=== PATIENT | female | born 1985 | race Caucasian/White ===

== ENCOUNTER 2018-02-14 12:31 | Observation (INO) ==
[2018-02-14 14:24] LABS: Amphetamine Screen,Urine Negative ng/mL (Cutoff=1000); Barbiturate Screen,Urine Negative ng/mL (Cutoff=200); Benzodiazepines Screen,Urine Negative ng/mL (Cutoff=200); Candida DNA Not Detected (Not Detect); Cannabinoid Screen,Urine Negative ng/mL (Cutoff = 50); Cocaine Screen,Urine Negative ng/mL (Cutoff= 300); Gardnerella DNA Not Detected (Not Detect); Opiate Screen,Urine Negative ng/mL (Cutoff=300); Phencyclidine Screen,Urine Negative ng/mL (Cutoff=25); Trichomonas DNA Not Detected (Not Detect)
--- NOTE | 2018-02-14 16:02 | OB/GYN Progress Note ---
Date of Encounter: 02/15/18 Time of Encounter: 15:31 - Assessment and Plan (1) 31 weeks gestation of Status: Acute Follow-up as 30 scheduled labor parameters discussed Discharge home (2) Vaginal discharge during in third trimester Status: Acute fibronectin positive-this test was collected and run prior to knowledge of last intercourse. Given last intercourse was this morning, it is likely that this is a false positive. Vaginosis panel-negative Urine screen negative Fern test negative Nitrazine negative (3) NST (non-stress test) reactive on surveillance Status: Acute Subjective - Subjective Principal diagnosis: Vaginal discharge in Interval history: Ms. chatman presents to L&D with concern for leakage of fluid. She states that since this morning she has experienced increase vaginal discharge that is clear to white in color. She states it smells like her discharge always smells. Last intercourse was this morning. She endorses good movement. Reports occasional contractions. Denies vaginal bleeding. Antepartum ROS: new complaints, loss of fluid, movement normal, contractions, no vaginal bleeding Objective - Vital Signs Vital Signs: Intake and Output 02/13/18 02/14/18 02/14/18 23:59 07:59 15:59 Other: Weight 87.18 kg Patient Weight 02/14/18 23:59 Weight 87.18 kg - Exam FHR: category 1 Auscultation: bilateral: normal Abdomen: Present: normal appearance, soft, gravid Uterus: Present: normal, firm - Labs Labs: Abnormal lab results Fibronectin Positive (Negative) A 02/14/18 13:20
== END 2018-02-14 14:49 | disposition home or self-care (01) ==
LOC: 1NENULAB
PROVIDERS: ADMIT Student in an Organized Health Care Education/Training Program; ATTEND Student in an Organized Health Care Education/Training Program

== ENCOUNTER → 2018-04-07 01:25 | Observation (INO) ==
[2018-04-06 22:47] LABS: Basophils % 0.3 %; Eosinophils # 0.1 K/mcL (0.0-0.6); Eosinophils % 1.2 %; Hematocrit 35.3 % (35.3-44.9); Hemoglobin 11.3 g/dL (11.5-15.4); Immature Granulocytes % 0.9 % (0-4); Lymphocytes # 2.4 K/mcL (0.6-4.6); Lymphocytes % 20.7 %; Mean Corpuscular Hemoglobin 27.4 pg (28.0-33.3); Mean Corpuscular Volume 85.5 fL (83.0-100.0); Mean Platelet Volume 11.1 fL (9.4-12.4); Monocytes # 0.8 K/mcL (0.0-1.3); Monocytes % 7.1 %; Neutrophils # 8.1 K/mcL (1.6-8.9); Platelet Count 259 K/mcL (140-400); Red Blood Count 4.13 M/mcL (3.82-4.97); Red Cell Distribution Width 14.6 % (11.5-14.5); Segmented Neutrophils % 69.8 %
[2018-04-06 22:54] LABS: Prothrombin Time 10.9 Seconds (9.4-12.1)
[2018-04-06 22:55] LABS: Amphetamine Screen,Urine Negative ng/mL (Cutoff=1000); Barbiturate Screen,Urine Negative ng/mL (Cutoff=200); Benzodiazepines Screen,Urine Negative ng/mL (Cutoff=200); Cannabinoid Screen,Urine Negative ng/mL (Cutoff = 50); Cocaine Screen,Urine Negative ng/mL (Cutoff= 300); Opiate Screen,Urine Negative ng/mL (Cutoff=300); Phencyclidine Screen,Urine Negative ng/mL (Cutoff=25)
[2018-04-06 22:57] LABS: Activated Partial Thrombo Time 27.9 Seconds (26.0-36.0)
--- NOTE | 2018-04-06 23:08 | OB/GYN History & Physical ---
Date of Encounter: 04/06/18 Time of Encounter: 22:59 Assessment and Plan (1) 38 weeks gestation of Current visit: Yes Status: Acute admitted for observation (2) Fall Current visit: Yes Status: Acute Coags evin Jones aware of patient and her complaints. No further orders at this time. Qualifiers: Encounter type: initial encounter Qualified Code(s): W19.XXXA - Unspecified fall, initial encounter (3) History of section, low transverse Current visit: Yes Status: Acute Repeat C/S scheduled for 04/10/[address] Choudhury History of Present Illness Chief complaint: Fall HPI: Ms. Cameron is a 32 year old female @ 38w3d presents to labor and delivery wi th complaint of falling tonight around 2029. Patient state states she was outside trying to get fall decorations that were blowing away and she slipped. She fell first hitting her left knee then her abdomen and then her face. Patient denies VB, LOF or feeling regular contractions. Patient reports +FM. Patient is scheduled for a repeat c/s on Sunday04/10/18. Patient reports at 1800 she had half of a ham sandwich to eat and a drink of water around 1999 to take a zantac. Blood type: B+ Rubella: Immune Hep B: unknown GBS: Negative Past Med Surg Social Fam HX - Past Medical History Source: patient Medical history: other Additional medical history: widom teeth Psychiatric history: no psych history - Past Surgical History Surgical History: no surgical history Additional surgical history: wisdom teeth removed, x2 - Social History Smoking Status: Never smoker Alcohol use: none Drug use: none Occupational status: unemployed Current living situation: Home - Independent Activity Level: Independent ambulation Recent Out of Country Travel Within the Last 8 Weeks: No Exposure or Possible Exposure to Illness During Travel: No - Family History Mother Family Member Ethnicity: Non- Living Status: Still Living Hx Family Cardiac Disorders: Yes (HTN, hyperlipidemia) Hx Family Respiratory Disorders: No Hx Family Cancer: No Hx Family GI Disorders: No Hx Family Endocrine Disorder: Yes (DM, hypthyroidism) Hx Family Neuromuscular Disorders: No Hx Family Neurologic Disorders: No Hx Family HEENT Disorders: No Hx Family Autoimmune Disorders: No Obstetrical History - Pregnancies : 3 Para: 2 Term: 2 : 0 Ab's: 0 Livin Medications and Allergies Ferrous Sulfate 325 mg PO DAILY 02/14/18 [History] Formula Tablet 1 / PO DAILY 02/14/18 [History] raNITIdine HCl [Zantac] 75 mg PO DAILY 02/14/18 [History] Allergy/AdvReac Type Severity Reaction Status Date / Time No Known Allergies Allergy Verified 02/10/17 22:51 Review of System OB - Constitutional Constitutional ROS IM: no chills, no fever(s), no headache(s) - Cardiovascular Cardiovascular: no chest pain, no lightheadedness, no palpitations, no syncope - Respiratory Respiratory: no dyspnea - Gastrointestinal Gastrointestinal: no abdominal pain, no constipation, no diarrhea, no heartburn, no nausea, no vomiting - Genitourinary Genitourinary: no abnormal vaginal bleeding, no dysuria, no flank pain, no urinary frequency, no urinary urgency, no vaginal discharge, no vaginal odor, no vaginal pruritis Exam - Constitutional Constitutional: well developed, well nourished, no acute distress, average body habitus - HEENT HEENT: Normocephaly, Mucus Membranes Moist - Neck Neck exam: full ROM, normal inspection, supple - Lungs Respiratory exam: CTAB - Cardiovascular Cardiovascular exam: RRR, +S1, +S2 - Abdomen Abdomen: Present: bowel sounds normal, gravid, non tender - Extremities Extremities exam: full ROM, normal capillary refill, normal inspection Deep Tendon Reflex Grade: 2+ Normal - Comments Comments: FHR 145 bpm moderate variability +15x15 accels no decels noted Cat. 1 tracing contractions 2-3 min apart Results Result Diagrams: 04/06/18 22:00 Abnormal lab results WBC 11.6 K/mcL (4.3-11.1) H 04/06/18 22:00 Hgb 11.3 g/dL (11.5-15.4) L 04/06/18 22:00 MCH 27.4 pg (28.0-33.3) L 04/06/18 22:00 RDW 14.6 % (11.5-14.5) H 04/06/18 22:00 All other labs normal. - VTE Reasons for not Prescribing Prophylaxis: Treatment not Indicated - Low risk for VTE
--- NOTE | 2018-04-06 23:52 | Event Note ---
Date of Encounter: 04/06/18 Time of Encounter: 23:50 Discussed all lab results, EFM and toco, patient assessment and details of the fall with Dr. Jones. Dr. Jones would like SVE and one more hour of monitoring. If EFM is still reactive patient may be discharge home. SVE per RN Closed/thick
[~2018-04-07 01:25] MED LIST: Ringers Solution, Lactated 1,000 ML ONE
== END | disposition home or self-care (01) ==
LOC: 1NENULAB
PROVIDERS: ADMIT Advanced Practice Midwife; ATTEND Advanced Practice Midwife

== ENCOUNTER 2018-04-10 05:45 | Inpatient (IN) ==
[2018-04-10] MEDS ORDERED: Metoclopramide 10 MG/2 ML VIAL IVP PRN ×2 (05:47→10:36)
[2018-04-10] MEDS ORDERED: Naloxone 0.4 MG/ML INJ IVP PRN (05:47)
[2018-04-10] MEDS ORDERED: Famotidine 20 MG/2 ML VIAL IVP PRN (05:47)
[2018-04-10] MEDS ORDERED: CeFAZolin Premix DUPLEX 2,000 MG/50 ML BAG IVPB ONE (05:47)
[2018-04-10] MEDS ORDERED: Ringers Solution, Lactated 1,000 ML IVC SCH ×2 (06:00→07:45)
[2018-04-10] MEDS ORDERED: Ringers Solution, Lactated 1,000 ML ONE (06:06)
[2018-04-10 06:21] LABS: Basophils % 0.4 %; Eosinophils # 0.1 K/mcL (0.0-0.6); Eosinophils % 1.4 %; Hematocrit 32.9 % (35.3-44.9); Hemoglobin 10.5 g/dL (11.5-15.4); Lymphocytes % 21.1 %; Mean Corpuscular HGB Conc 31.9 g/dL (31.6-35.5); Mean Corpuscular Hemoglobin 27.3 pg (28.0-33.3); Mean Corpuscular Volume 85.5 fL (83.0-100.0); Mean Platelet Volume 10.8 fL (9.4-12.4); Monocytes # 0.8 K/mcL (0.0-1.3); Monocytes % 8.4 %; Neutrophils # 6.3 K/mcL (1.6-8.9); Platelet Count 224 K/mcL (140-400); Red Blood Count 3.85 M/mcL (3.82-4.97); Red Cell Distribution Width 14.7 % (11.5-14.5); Segmented Neutrophils % 67.7 %
[2018-04-10 06:59] LABS: Amphetamine Screen,Urine Negative ng/mL (Cutoff=1000); Barbiturate Screen,Urine Negative ng/mL (Cutoff=200)
[2018-04-10 07:00] LABS: Benzodiazepines Screen,Urine Negative ng/mL (Cutoff=300); Cannabinoid Screen,Urine Negative ng/mL (Cutoff = 50); Cocaine Screen,Urine Negative ng/mL (Cutoff= 300); Opiate Screen,Urine Negative ng/mL (Cutoff=300); Phencyclidine Screen,Urine Negative ng/mL (Cutoff=25)
--- NOTE | 2018-04-10 07:40 | Anesthesia Evaluation PreOp ---
Date of Encounter: 04/10/18 Time of Encounter: 07:30 - Past History Planned Operation: Spinal for Repeat csection Cardiac History: Denies any Significant Hx Pulmonary History: Denies Any Significant HX ROOM CLERK History: Denies Any Significant HX Other Medical History: Denies Any Significant HX, GERD Anesthesia History: No Prior Anesthetic Complications, Past Anesthesia (Csection x 2, wisdom teeth extraction) : Yes Alcohol Use: none Drug use: none Medications and Allergies Ferrous Sulfate 325 mg PO DAILY 02/14/18 [History] Formula Tablet 1 / PO DAILY 02/14/18 [History] raNITIdine HCl [Zantac] 75 mg PO DAILY 02/14/18 [History] Allergy/AdvReac Type Severity Reaction Status Date / Time No Known Allergies Allergy Verified 02/10/17 22:51 - Meds/Allergy Pre-op Review Medications Reviewed: Yes Allergies Reviewed: Yes Beta Blockers on Current Med List: No Anesthesia Results - Labs 04/10/18 05:47 Anesthesia Exam BP 123/77 P 102 T 98.2 R 16 Height: 5'0" Weight: 91.3kg NPO (# of Hours): 10 Pain Scale: 0 Pain Scale Used: Numeric (1 - 10) - HEENT Pupil (Motor): Pupils equal Mallampati: II Teeth: Normal Oral Opening: Greater than 3 - ROOM CLERK LOC: Oriented ROOM CLERK Motor: Normal RUE, Normal LUE, Normal RLE, Normal LLE, Normal Face ROOM CLERK Sensory: Normal: RUE, LUE, RLE, LLE, Face - Cardiac Rhythm: Regular Murmur: None JVD: No Carotid Bruit: No - Pulmonary Breath Sounds: bilateral Clear Respiratory Effort: Symmetrical Anesthesia Assess/Plan ASA Score: 2 Modified [place] Scale for Level of Consciousness: Cooperative, oriented, and tranquil Anesthetic Plan: Regional Autologous Blood: No Monitoring Plan: Standard Monitors Recovery Plan: PACU
[2018-04-10] MEDS ORDERED: *HR* Promethazine 25 MG/ML VIAL IVP PRN (07:43)
[2018-04-10] MEDS ORDERED: Acetaminophen IV 1,000 MG/100 ML INFUS..BTL IVPB ONE (07:43)
[2018-04-10] MEDS ORDERED: *HR* HYDROmorphone (PF) 1 MG/ML SYRINGE IVP PRN (07:43)
[2018-04-10] MEDS ORDERED: *HR* Meperidine 50 MG/ML SYRINGE IVP PRN (07:43)
[2018-04-10] MEDS ORDERED: *HR* OxyCODONE Immed Rel 5 MG TABLET PO PRN (07:43)
[2018-04-10] MEDS ORDERED: Ondansetron 4 MG/2 ML VIAL IVP ONE (07:43)
[2018-04-10] MEDS ORDERED: Dexamethasone 4 MG/ML VIAL ONE (07:49)
[2018-04-10] MEDS ORDERED: *HR* Morphine Sulfate/PF 10 MG/10 ML AMPUL ONE (07:49)
[2018-04-10] MEDS ORDERED: EPHEDrine 50 MG/ML VIAL ONE (07:49)
[2018-04-10] MEDS ORDERED: *HR* Oxytocin 10 UNIT/ML VIAL IM ONE (07:50)
[2018-04-10] MEDS ORDERED: Lidocaine -MPF 2% 5 ML VIAL ONE (07:53)
[2018-04-10] MEDS ORDERED: Bupivacaine/PF 0.75% in Dex 2 ML AMPUL INFILT ONE (07:56)
--- NOTE | 2018-04-10 08:09 | OB/GYN History & Physical ---
Date of Encounter: 04/10/18 Time of Encounter: 08:07 Assessment and Plan (1) 39 weeks gestation of Current visit: Yes Status: Acute Patient is 39 weeks gestation presents for repeat section and tubal ligation. She was aware operative risks and signed appropriate consent. (2) History of section, low transverse Current visit: Yes Status: Acute Presents for repeat section and bilateral partial salpingectomy. History of Present Illness Chief complaint: Here for repeat c-sec and BPS HPI: Ms. Cameron is a 32 year old female 3 para 2 female presents today for repeat section and bilateral partial salpingectomy. This is uncomplicated this is expected to have a infant greater than 99th percentile in weight. She reports good movement and no bleeding or leakage of fluid Past Med Surg Social Fam HX - Past Medical History Source: patient, old records reviewed Medical history: no medical history, other Additional medical history: widom teeth Psychiatric history: no psych history - Past Surgical History Surgical History: no surgical history Additional surgical history: wisdom teeth removed, x2 - Social History Smoking Status: Never smoker Alcohol use: none Drug use: none - Family History Mother Family Member Ethnicity: Non- Living Status: Still Living Hx Family Cardiac Disorders: Yes (HTN, high cholesterol) Hx Family Respiratory Disorders: No Hx Family Cancer: No Hx Family GI Disorders: No Hx Family Endocrine Disorder: Yes (DM) Hx Family Musculoskeletal Disorders: No Hx Family Neuromuscular Disorders: No Hx Family Neurologic Disorders: No Hx Family HEENT Disorders: No Hx Family Autoimmune Disorders: No Hx Family Reproductive Disorders: No Hx Family Psychosocial Disorders: No Hx Family Medical Disorders: No Obstetrical History - Pregnancies : 3 Para: 2 Medications and Allergies Ferrous Sulfate 325 mg PO DAILY 02/14/18 [History] Formula Tablet 1 / PO DAILY 02/14/18 [History] raNITIdine HCl [Zantac] 75 mg PO DAILY 02/14/18 [History] Allergy/AdvReac Type Severity Reaction Status Date / Time No Known Allergies Allergy Verified 02/10/17 22:51 Exam - Constitutional Constitutional: well developed, well nourished, no acute distress - HEENT HEENT: EOMI, PERRL - Neck Neck exam: full ROM - Lungs Respiratory exam: CTAB - Cardiovascular Cardiovascular exam: RRR - Abdomen Abdomen: Present: gravid - Extremities Extremities exam: full ROM Deep Tendon Reflex Grade: 2+ Normal Results Result Diagrams: 04/10/18 05:47 Abnormal lab results Hgb 10.5 g/dL (11.5-15.4) L 04/10/18 05:47 Hct 32.9 % (35.3-44.9) L 04/10/18 05:47 MCH 27.3 pg (28.0-33.3) L 04/10/18 05:47 RDW 14.7 % (11.5-14.5) H 04/10/18 05:47 All other labs normal.
[2018-04-10] MEDS ORDERED: Nitroglycerin Spray 4.9 GM BOTTLE ONE (09:14)
[2018-04-10] MEDS ORDERED: *HR* Phenylephrine 10 MG/ML VIAL ONE (09:14)
[2018-04-10] MEDS ORDERED: *HR* FentaNYL (PF) 100 MCG/2 ML VIAL ONE (09:58)
--- NOTE | 2018-04-10 10:25 | Anesthesia Procedures ---
Date of Encounter: 04/10/18 Time of Encounter: 09:10 Procedures: Anesthesia - Epidural/Spinal Patient ID/Chart reviewed: Yes Patient examined: Yes OB Eval: Gestational age: 39 OB Eval: : 3 OB Eval: Hx Para: 2 Consent Obtained: Yes Supplemental Oxygen: None/Room Air Site Prep: Aseptic Technique, Sterile prep and drape, Povidone-Iodine 1% Patient position: upright Local Anesthetic: Lidocaine 1% Amount of Local Anesthetic used: 3 Interspace Used: L4-L5 Loss of Resistance (YENI): No Blood: No CSF: Yes Paresthesia: No Spinal Needle Gauge: 25 Spinal Dose: Marcaine 0.75% 1.4ml Morphine 300mcg Procedure: Intrathecal dose administered 1st pass in upright position without any immediate noted complications. VSS and FHT stable throughout. Vitals + FHT's: See anesthesia record
[2018-04-10] MEDS ORDERED: Sennosides 8.6 MG TABLET PO PRN (10:36)
[2018-04-10] MEDS ORDERED: Ondansetron 4 MG/2 ML VIAL IVP PRN (10:36)
[2018-04-10] MEDS ORDERED: Simethicone 80 MG TAB.CHEW PO PRN (10:36)
[2018-04-10] MEDS ORDERED: *HR* HYDROmorphone 2 MG TABLET PO PRN (10:40)
[2018-04-10] MEDS ORDERED: Oxytocin 20 units/ LR 1000 mL 20 UNIT/1,000 ML BAG IVC SCH (10:45)
[2018-04-10 22:34] LABS: Basophils % 0.1 %; Hematocrit 21.9 % (35.3-44.9); Hemoglobin 6.9 g/dL (11.5-15.4); Immature Granulocytes % 0.8 % (0-4); Lymphocytes # 1.2 K/mcL (0.6-4.6); Lymphocytes % 7.1 %; Mean Corpuscular HGB Conc 31.5 g/dL (31.6-35.5); Mean Corpuscular Hemoglobin 27.7 pg (28.0-33.3); Monocytes % 5.7 %; Neutrophils # 14.9 K/mcL (1.6-8.9); Platelet Count 196 K/mcL (140-400); Red Blood Count 2.49 M/mcL (3.82-4.97); Red Cell Distribution Width 14.6 % (11.5-14.5); Segmented Neutrophils % 86.3 %
[2018-04-10] MEDS ORDERED: Methylergonovine 0.2 MG/ML AMPUL IM ONE (23:07)
--- NOTE | 2018-04-10 23:21 | Anesthesia Evaluation Post Op ---
Date of Encounter: 04/10/18 Time of Encounter: 12:00 - Vital Signs Vital Signs: Vital Signs Temperature 98.0 F 04/10/18 13:00 Pulse Rate 120 04/10/18 13:00 Respiratory Rate 16 04/10/18 13:00 Blood Pressure 112/70 04/10/18 13:00 O2 Sat by Pulse Oximetry 97 04/10/18 13:00 Temperature 97.4 F L 04/10/18 21:01 Pulse Rate 118 04/10/18 21:01 Respiratory Rate 16 04/10/18 21:01 Blood Pressure 119/79 04/10/18 21:01 O2 Sat by Pulse Oximetry 97 04/10/18 21:01 - Lungs Lungs: Clear Ascult./Percussion - Airway Airway: Non-obstructed - Cardiovascular Regular Rate - Mental Status Mental Status: Alert & Oriented, Answers Appropriately - Pain Pain Scale: 5 (sleeping) Pain Scale used: Numeric (1 - 10) - Nausea Vomiting Nausea Vomiting: Not Present - Hydration Hydration: NPO, Moseley catheter - Discharge PostOp Status: Transfer Patient to floor
[2018-04-11] MEDS ORDERED: 0.9 % Sodium Chloride 250 ML IVC SCH (00:30)
--- NOTE | 2018-04-11 00:30 | Event Note ---
Date of Encounter: 04/11/18 Time of Encounter: 00:25 CNM notified of pt having one large gush of lochia this evening. Stat CBC ordered. RN then called to report CB results show hgb 6.9. Assessment reveals fundus firm with massage. 200ml blood noted on bimanual exam. Pt is mildly tachycardic and reports she felt dizzy when she sat on the side of the bed. Blood transfusion discussed with pt and s/o at length. Dr. Harris notifed and coagulation studies ordered. Dr. Harris then attended for bedside US which showed a thin endometrial stripe. Bimanual exam per Dr. Harris reveals small amount dark red blood. Pt agreeable to transfusion at this time and is consented. 2 units PRBCs ordered. Will continue to monitor closely and check for appropriate rise following transfusion.
[2018-04-11 00:33] LABS: INR 1.1; Prothrombin Time 12.4 Seconds (9.4-12.1)
[2018-04-11 00:35] LABS: Activated Partial Thrombo Time 26.5 Seconds (26.0-36.0)
[2018-04-11] MEDS: Ibuprofen 600 MG TABLET PO PRN ×3 (02:40→18:06)
[2018-04-11 08:34] LABS: Basophils % 0.2 %; Eosinophils % 0.1 %; Hematocrit 23.9 % (35.3-44.9); Hemoglobin 7.7 g/dL (11.5-15.4); Immature Granulocytes % 0.6 % (0-4); Mean Corpuscular HGB Conc 32.2 g/dL (31.6-35.5); Mean Corpuscular Volume 86.9 fL (83.0-100.0); Mean Platelet Volume 10.9 fL (9.4-12.4); Monocytes # 1.1 K/mcL (0.0-1.3); Monocytes % 6.6 %; Neutrophils # 13.1 K/mcL (1.6-8.9); Platelet Count 199 K/mcL (140-400); Red Blood Count 2.75 M/mcL (3.82-4.97); Red Cell Distribution Width 14.8 % (11.5-14.5); Segmented Neutrophils % 80.5 %
[2018-04-11] MEDS ORDERED: Prenatal Vit/FA 1 EACH TABLET PO SCH (09:00)
--- NOTE | 2018-04-11 10:56 | OB/GYN Progress Note ---
Date of Encounter: 04/11/18 Time of Encounter: 10:32 - Assessment and Plan (1) Status post repeat low transverse section Current Visit: Yes Status: Acute Meeting all day 1 milestones Continue routine PP care Anticipate d/c home tomorrow (2) anemia Current Visit: Yes Status: Acute 2 units PRBC infused Repeat CBC at 1600 (3) Breast feeding status of mother Current Visit: Yes Status: Acute consult PRN Subjective - Subjective Principal diagnosis: s/p RLTCS Interval history: Feeling well. OOB without dizziness. Some abdominal discomfort - using binder. Pain controlled with ibuprofen and percocet. Ambulating with assistance. Tolerating advancing diet. Voiding independently. Lochia light. Patient reports: appetite normal, voiding normally, pain well controlled, a mbulating normally : doing well, nursing well Objective - Vital Signs Latest vital signs: Vital Signs Temp Pulse Pulse Resp BP Pulse Ox 04/11/18 07:55 97.7 F 110 111/73 04/11/18 07:15 98.4 F 100 16 111/72 96 04/11/18 04:33 98.9 F 115 16 102/70 99 04/11/18 04:06 98.4 F 112 16 116/77 04/11/18 00:46 97.8 F 115 16 128/80 99 04/10/18 23:42 98.2 F 110 18 122/65 99 04/10/18 23:00 97.9 F 113 16 110/71 97 04/10/18 21:01 97.4 F L 118 16 119/79 97 04/10/18 16:16 102 16 04/10/18 16:15 97.6 F 102 16 118/66 98 04/10/18 15:00 97.6 F 110 16 109/64 98 04/10/18 14:00 97.6 F 102 16 104/63 97 04/10/18 13:33 97.6 F 118 14 110/69 98 04/10/18 13:28 97.6 F 118 14 110/69 98 04/10/18 13:00 98.0 F 120 120 16 112/70 97 Intake and Output 04/10/18 04/11/18 04/11/18 23:59 07:59 15:59 Intake Total 350 / 350 350 / 350 Output Total 450 / 450 350 / 350 Balance -450 / -450 0 / 0 350 / 350 Intake: Blood Product 350 / 350 350 / 350 Rbcs Leuko Poor As-1 Unit 350 / 350 [id number] Rbcs Leuko Poor As-1 Unit 350 / 350 [id number] Output: Catheter 450 / 450 350 / 350 - Exam Lungs: bilateral: normal Chest: Normal S1, Normal S2 Extremities: Present: normal Abdomen: Present: normal appearance, soft Incision: Present: normal, dry, dressed Uterus: Present: normal, firm Fundal Height: 1 (below and midline) - Labs Labs: Laboratory Results - last 24 hr 04/10/18 04/10/18 04/10/18 06:00 21:58 23:59 WBC 17.3 H D RBC 2.49 L Hgb 6.9 L D Hct 21.9 L MCV 88.0 MCH 27.7 L MCHC 31.5 L RDW 14.6 H Plt Count 196 MPV 11.0 Immature Gran % 0.8 Seg Neutrophils % 86.3 Lymphocytes % 7.1 Monocytes % 5.7 Eosinophils % 0.0 Basophils % 0.1 Neutrophils # 14.9 H Lymphocytes # 1.2 Monocytes # 1.0 Eosinophils # 0.0 Basophils # 0.0 PT 12.4 H INR 1.1 APTT 26.5 Fibrinogen 272 Specimen Rejected Blood Type Cancelled Antibody Screen Cancelled Crossmatch See Detail Band and Hold Cancelled 04/11/18 04/11/18 04/11/18 02:36 06:00 07:56 WBC 16.3 H RBC 2.75 L Hgb 7.7 L Hct 23.9 L MCV 86.9 MCH 28.0 MCHC 32.2 RDW 14.8 H Plt Count 199 MPV 10.9 Immature Gran % 0.6 Seg Neutrophils % 80.5 Lymphocytes % 12.0 Monocytes % 6.6 Eosinophils % 0.1 Basophils % 0.2 Neutrophils # 13.1 H Lymphocytes # 2.0 Monocytes # 1.1 Eosinophils # 0.0 Basophils # 0.0 PT INR APTT Fibrinogen Specimen Rejected Clotted Blood Type B POSITIVE Antibody Screen NEGATIVE Crossmatch See Detail Band and Hold
[2018-04-11] MEDS: *HR* OxyCODONE/APAP 5/325 TABLET PO PRN ×2 (12:02→23:43)
[2018-04-11 16:37] LABS: Basophils % 0.2 %; Eosinophils # 0.1 K/mcL (0.0-0.6); Eosinophils % 0.9 %; Hemoglobin 8.5 g/dL (11.5-15.4); Immature Granulocytes % 0.9 % (0-4); Lymphocytes # 2.2 K/mcL (0.6-4.6); Lymphocytes % 15.7 %; Mean Corpuscular HGB Conc 32.7 g/dL (31.6-35.5); Mean Corpuscular Hemoglobin 28.3 pg (28.0-33.3); Mean Corpuscular Volume 86.7 fL (83.0-100.0); Mean Platelet Volume 10.5 fL (9.4-12.4); Monocytes # 1.1 K/mcL (0.0-1.3); Neutrophils # 10.4 K/mcL (1.6-8.9); Platelet Count 196 K/mcL (140-400); Red Cell Distribution Width 14.7 % (11.5-14.5); Segmented Neutrophils % 74.3 %
[2018-04-12] MEDS: *HR* OxyCODONE/APAP 5/325 TABLET PO PRN (06:50)
[2018-04-12 09:00] VITALS: BP 103/65
--- NOTE | 2018-04-12 09:24 | Discharge Summary ---
Date of Encounter: 04/12/18 Time of Encounter: 09:18 - Discharge Diagnosis (1) Status post repeat low transverse section Priority: Primary Status: Acute Comments: S/P Repeat C/S Day 2 VSS Pain well controlled Lochia light and without clots Voiding without difficulty Tolerating regular diet and passing flatus breast feeding without difficulty Discharge home today (2) anemia Priority: Secondary Status: Acute Comments: VSS, denies dyspnea and dizziness. Normotensive, normal respiration rate, increased heart rate - normal for patient to be in low 100's for HR since admission Discharge home with BID ferrous sulfate for 90 days (3) Breast feeding status of mother Priority: Secondary Status: Acute - Discharge Medications Prescriptions: Ibuprofen [Motrin] 600 mg PO Q6HR PRN #30 tablet PRN Reason: Cramping Breast Pump [BREAST PUMP] 1 each .ROUTE AD #1 each Docusate [Colace] 100 mg PO BID #30 capsule Ferrous Sulfate 325 mg PO BIDWM #180 tablet OxyCODONE/APAP 5/325 [Percocet 5/325 MG] 1 each PO Q6H PRN 5 Days #20 tablet PRN Reason: Moderate pain 4-6 Home Medications: Formula Tablet 1 / PO DAILY 02/14/18 [History] raNITIdine HCl [Zantac] 75 mg PO DAILY 02/14/18 [History] Breast Pump [BREAST PUMP] 1 each .ROUTE AD #1 each 04/12/18 [Rx] Docusate [Colace] 100 mg PO BID #30 capsule 04/12/18 [Rx] Ferrous Sulfate 325 mg PO BIDWM #180 tablet 04/12/18 [Rx] Ibuprofen [Motrin] 600 mg PO Q6HR PRN #30 tablet 04/12/18 [Rx] OxyCODONE/APAP 5/325 [Percocet 5/325 MG] 1 each PO Q6H PRN 5 Days #20 tablet 04/12/18 [Rx] Simethicone [Gas-X] 80 mg PO TID PRN tab.chew 04/12/18 [Rx] Allergies/Adverse Reactions: Allergy/AdvReac Type Severity Reaction Status Date / Time No Known Allergies Allergy Verified 02/10/17 22:51 Data Procedures and tests throughout hospitalization: Laboratory Tests 04/10/18 04/10/18 04/10/18 05:47 06:00 06:00 WBC 9.3 RBC 3.85 Hgb 10.5 L Hct 32.9 L MCV 85.5 MCH 27.3 L MCHC 31.9 RDW 14.7 H Plt Count 224 MPV 10.8 Immature Gran % 1.0 Seg Neutrophils % 67.7 Lymphocytes % 21.1 Monocytes % 8.4 Eosinophils % 1.4 Basophils % 0.4 Neutrophils # 6.3 Lymphocytes # 2.0 Monocytes # 0.8 Eosinophils # 0.1 Basophils # 0.0 PT INR APTT Fibrinogen Urine Opiates Screen Negative Ur Barbiturates Screen Negative Ur Phencyclidine Scrn Negative Ur Amphetamines Screen Negative U Benzodiazepines Scrn Negative Urine Cocaine Screen Negative U Marijuana (THC) Screen Negative Ur Drug Screen Interp See Below Hep Bs Antigen Specimen Rejected Blood Type Cancelled Antibody Screen Cancelled Crossmatch See Detail Band and Hold Cancelled 04/10/18 04/10/18 04/10/18 06:00 21:58 23:59 WBC 17.3 H D RBC 2.49 L Hgb 6.9 L D Hct 21.9 L MCV 88.0 MCH 27.7 L MCHC 31.5 L RDW 14.6 H Plt Count 196 MPV 11.0 Immature Gran % 0.8 Seg Neutrophils % 86.3 Lymphocytes % 7.1 Monocytes % 5.7 Eosinophils % 0.0 Basophils % 0.1 Neutrophils # 14.9 H Lymphocytes # 1.2 Monocytes # 1.0 Eosinophils # 0.0 Basophils # 0.0 PT 12.4 H INR 1.1 APTT 26.5 Fibrinogen 272 Urine Opiates Screen Ur Barbiturates Screen Ur Phencyclidine Scrn Ur Amphetamines Screen U Benzodiazepines Scrn Urine Cocaine Screen U Marijuana (THC) Screen Ur Drug Screen Interp Hep Bs Antigen Nonreactive Specimen Rejected Blood Type Antibody Screen Crossmatch Band and Hold 04/11/18 04/11/18 04/11/18 02:36 06:00 07:56 WBC 16.3 H RBC 2.75 L Hgb 7.7 L Hct 23.9 L MCV 86.9 MCH 28.0 MCHC 32.2 RDW 14.8 H Plt Count 199 MPV 10.9 Immature Gran % 0.6 Seg Neutrophils % 80.5 Lymphocytes % 12.0 Monocytes % 6.6 Eosinophils % 0.1 Basophils % 0.2 Neutrophils # 13.1 H Lymphocytes # 2.0 Monocytes # 1.1 Eosinophils # 0.0 Basophils # 0.0 PT INR APTT Fibrinogen Urine Opiates Screen Ur Barbiturates Screen Ur Phencyclidine Scrn Ur Amphetamines Screen U Benzodiazepines Scrn Urine Cocaine Screen U Marijuana (THC) Screen Ur Drug Screen Interp Hep Bs Antigen Specimen Rejected Clotted Blood Type B POSITIVE Antibody Screen NEGATIVE Crossmatch See Detail Band and Hold 04/11/18 16:26 WBC 13.9 H RBC 3.00 L Hgb 8.5 L Hct 26.0 L MCV 86.7 MCH 28.3 MCHC 32.7 RDW 14.7 H Plt Count 196 MPV 10.5 Immature Gran % 0.9 Seg Neutrophils % 74.3 Lymphocytes % 15.7 Monocytes % 8.0 Eosinophils % 0.9 Basophils % 0.2 Neutrophils # 10.4 H Lymphocytes # 2.2 Monocytes # 1.1 Eosinophils # 0.1 Basophils # 0.0 PT INR APTT Fibrinogen Urine Opiates Screen Ur Barbiturates Screen Ur Phencyclidine Scrn Ur Amphetamines Screen U Benzodiazepines Scrn Urine Cocaine Screen U Marijuana (THC) Screen Ur Drug Screen Interp Hep Bs Antigen Specimen Rejected Blood Type Antibody Screen Crossmatch Band and Hold Labs on day of discharge: Labs from last 24 hours 04/11/18 04/11/18 16:26 02:36 WBC 13.9 H RBC 3.00 L Hgb 8.5 L Hct 26.0 L MCV 86.7 MCH 28.3 MCHC 32.7 RDW 14.7 H Plt Count 196 MPV 10.5 Immature Gran % 0.9 Seg Neutrophils % 74.3 Lymphocytes % 15.7 Monocytes % 8.0 Eosinophils % 0.9 Basophils % 0.2 Neutrophils # 10.4 H Lymphocytes # 2.2 Monocytes # 1.1 Eosinophils # 0.1 Basophils # 0.0 Crossmatch See Detail Date of admission: 04/10/18 05:45 Primary care physician: Channing Alcantara Discharging clinician: Deana Hernadez Anticipated date of discharge: 04/12/18 - Patient Status Disposition: Home, Self-Care Condition: Good Functional capacity at discharge: independent ambulation Overall status at discharge: patient is progressing back to baseline - Discharge Instructions Follow Up With: Channing Alcantara DO [Primary Care Provider] - Gerry Choudhury MD [Partnered Physician] - - Diet and Activity Activity: increase activity as tolerated Diet: regular diet Hospital Course Reason for admission: section, IUP at term Delivery: section Episiotomy: none Laceration: none Other procedures: tubal ligation complications: transfusion Discharge diagnosis: IUP at term delivered baby: female Time Attestation: Total time spent providing and/or coordinating discharge services: Time Spent: Less than 30 minutes - VTE Documentation of Mechanical Device: Intermittent pneumatic compression device Exam - Constitutional Vitals: Temp Pulse Resp BP Pulse Ox 98.4 F 118 14 103/65 98 04/12/18 09:00 04/12/18 09:00 04/12/18 09:00 04/12/18 09:00 04/12/18 09:00 General appearance IM: cooperative, A&O X 3, pleasant - Respiratory Respiratory exam: Present: CTAB - Cardiovascular Cardiovascular exam IM: Present: RRR, +S1, +S2 - GI/Abdominal GI/Abdominal exam IM: normal bowel sounds, soft Incision: normal, dry, intact - Rectal Rectal exam: deferred - Uterine Tone: Firm Uterus Position: At Umbilicus, Midline - Extremities Exam Extremities exam IM: Present: normal capillary refill, normal inspection, radial pulses palpable and symmetrical - Neurological Exam Neurological exam: alert, oriented X3
--- NOTE | 2018-04-12 19:17 | OB/GYN Procedure Note ---
Section - Date of procedure: 04/10/18 Preop diagnosis: desires repeat , desires sterilization Post-op diagnosis: same Procedure: section, repeat low transverse, bilateral tubal ligation Surgeon: Gerry Hernandez Blood Loss: [phone] Was there an program services assistant present: No Thread Dresser: Basim Mitchell Anesthesia Type: Spinal Disposition: L&D Recovery Room Specimens: Right tube segment, Left tube segment - (s) Infant A Infant Delivery Date: 04/10/18 Delivery Time: 09:36 Presentation: vertex Gender: Female Gram Weight: 4.13 kg at 1 minute: 9 at 5 minutes: 9 Shoulder Dystocia: not encountered Specimens collected: cord blood Placenta: spontaneous Cord: 3 umbilical vessels, nuchal cut - Narrative Narrative: Patient is a 32-year-old female here today for repeat section and tubal ligation. She is aware operative risks and signed appropriate consent. Description procedure: Patient was taken operating room where spinal anesthesia was administered. She is prepped draped in usual sterile fashion bladder was drained of clear urine. Scalpel was used to make Pfannenstiel skin incision over patient's previous scar. Sharp taken on the rectus fascia which was incised midline fascial incision was extended bilaterally. Plane was developed and rectus muscle rectus fascia the cervix muscle divided midline peritoneum was entered bluntly. Peritoneal incision was extended bilaterally. There were some adhesions between the bladder and lower uterine segment these were taken down taken the bladder out of the operative field. Scalp was used to make a low-transverse uterine this incision this was extended bluntly bilaterally. Membranes ruptured clear fluid and infant was delivered from vertex presentation. Was a loose nuchal cord 1 which was easily reduced. Cord was clamped cut and was handed nurse personnel who were in attendance. Uterus was massaged until firm and placenta was delivered manually. Uterine cavity was massaged free of all residual tissue. Uterine wall was quite thick this was closed with 0 Vicryl in running lock stitch. Second imbricating layer was placed for the first obtain hemostasis. There is to multiple ear cervix using therefore again proximal middle one half incision was closed 0 Vicryl running lock stitch. She remained quite oozy therefore several [id number] stitches were applied and David was applied. There remained some oozing left aspect of the scar this was again oversewn with a [id number] 0 Vicryl suture. Again irrigation was performed hemostasis was ensured. Approximate 4 cm segment of each fallopian tube including the fimbria were resected double ligated with oh plain catgut suture hemostasis was ensured. Fascia was closed with oh loop PDS. Again irrigation was performed hemostasis was ensured. Skin edges reapproximated with 4-0 Vicryl. Steri-Strips were applied all sponge and instruments counts are correct patient was taken recovery room good condition.
== END 2018-04-12 12:10 | disposition home or self-care (01) | DRG 785 ==
LOC: 1NENULAB 05:45 → 1NENUOBS 13:01
PROVIDERS: ADMIT Obstetrics & Gynecology; ATTEND Obstetrics & Gynecology